=== PATIENT | male | born 1950 | race Caucasian/White ===

== ENCOUNTER 2024-07-15 13:09 | Outpatient (CLI) | payer MEDICARE, OTHER ==
[2024-07-15 14:43] LABS: Hematocrit 41.2 % (38.8-50.0); Hemoglobin 13.5 g/dL (13.5-17.5); Mean Corpuscular HGB CONC 32.8 g/dL (32.0-36.0); Mean Corpuscular Hemoglobin 30.5 pg (27.0-33.0); Mean Platelet Volume 9.8 fL (7.4-10.4); Platelet Count 255 10x3/uL (150-450); RBC Distribution Width 12.9 % (11.5-14.5); Red Blood Cell (RBC) Count 4.43 10x6/uL (4.32-5.72); White Blood Cell (WBC) Count 6.9 10x3/uL (3.5-10.5)
[2024-07-15 15:03] LABS: Anion Gap 12 mmol/L (10-20); BUN (Urea Nitrogen) 22 mg/dL (8.4-25.7); Calc. Creatinine Clearance 0 mL/min (70-130); Calcium 10.7 mg/dL (7.8-10.44); Carbon Dioxide 26 mmol/L (23-31); Chloride 105 mmol/L (98-107); Estimated GFR 60; Glucose 104 mg/dL (83-110); Potassium 4.2 mmol/L (3.5-5.1); Sodium 139 mmol/L (136-145)
== END 2024-07-15 13:10 | disposition home or self-care (01) ==
LOC: CSHLAB 13:09
PROVIDERS: ATTEND Surgery
DX: Z01.818 Encounter for other preprocedural examination (principal); C81.91 Hodgkin lymphoma, unspecified, lymph nodes of head, face, and neck
CPT/HCPCS: 80048; 85027; 93005; 93010

== ENCOUNTER 2024-07-20 12:58 | Outpatient (CLI) | payer MEDICARE, OTHER | END 2024-07-20 12:59 | disposition home or self-care (01) | LOC: CSHULT 12:58 | PROVIDERS: ATTEND Internal Medicine | DX: Z01.810 Encounter for preprocedural cardiovascular examination (principal); C81.21 Mixed cellularity Hodgkin lymphoma, lymph nodes of head, face, and neck; I49.3 Ventricular premature depolarization | CPT/HCPCS: 93306 ==

== ENCOUNTER 2024-07-21 07:03 | Day surgery (SDC) | payer MEDICARE, OTHER ==
[2024-07-15 14:06] VITALS: BMI 25.7
[2024-07-21] MEDS ORDERED: Bupivacaine HCl 0.5%/Epinephrine 1:200,000/PF 30 ml Vial ONE (07:05)
[2024-07-21] MEDS ORDERED: CEFAZOLIN 2 GM VIAL ONE (07:06)
[2024-07-21] MEDS ORDERED: Midazolam HCl 2 mg/2 ml Vial ONE (09:00)
[2024-07-21] MEDS ORDERED: fentaNYL 50 mcg/mL 1 mL Vial ONE ×2 (09:02)
[2024-07-21] MEDS ORDERED: Ondansetron PF 4 MG/2 ML Vial ONE (09:02)
[2024-07-21] MEDS ORDERED: Dexamethasone 4 mg/ml Vial ONE ×2 (09:02)
[2024-07-21] MEDS ORDERED: Promethazine HCl 25 MG/ML VIAL ONE (09:02)
[2024-07-21] MEDS ORDERED: Lidocaine 1% PF 5 ML VIAL ONE (09:02)
[2024-07-21] MEDS ORDERED: Dexmedetomidine 200 MCG/2 ML VIAL ONE (09:02)
[2024-07-21] MEDS ORDERED: PROPOFOL 20 ML ONE (09:02)
[2024-07-21] MEDS ORDERED: Sterile Water 10 ML ONE (09:03)
[2024-07-21] MEDS ORDERED: HYDROcodone/Acetaminophen 5/325 mg Tablet ONE (12:05)
== END 2024-07-21 12:52 | disposition home or self-care (01) ==
LOC: CSHSDC 07:03
PROVIDERS: ATTEND Surgery
PROC: 0JH63WZ Insertion of Totally Implantable Vascular Access Device into Chest Subcutaneous Tissue and Fascia, Percutaneous Approach (ICD-10-PCS; principal; 2024-07-21)
DX: C81.91 Hodgkin lymphoma, unspecified, lymph nodes of head, face, and neck (principal); I10 Essential (primary) hypertension; E78.00 Pure hypercholesterolemia, unspecified; I25.10 Atherosclerotic heart disease of native coronary artery without angina pectoris; Z79.899 Other long term (current) drug therapy; Z88.2 Allergy status to sulfonamides; Z79.82 Long term (current) use of aspirin
CPT/HCPCS: 36561; 71045; A6258; C1788; J1100; J1642; J2250; J2405; J2550; J2704; J3010